=== PATIENT | female | born 1975 | race American Indian/Alaskan Native ===

== ENCOUNTER 2018-01-30 14:45 | Emergency (ER) | payer MEDICAID ==
[2018-01-30] MEDS ORDERED: TORADOL IM ONE (15:34)
[2018-01-30] MEDS ORDERED: DELTASONE PO ONE (15:34)
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
[2018-01-30 15:44] VITALS: BP 147/92
--- NOTE | 2018-01-30 16:46 | XRay Report ---
FINAL REPORT PROCEDURE: XR SPINE LUMBOSACRAL 2-3V TECHNIQUE: AP, lateral view and cone down lateral view were obtained. HISTORY: low back pain COMPARISON: No prior studies are available for comparison. FINDINGS: No fracture or subluxation is seen. Mild disc space narrowing seen at the L5-S1 level. Small marginal osteophytic spurs are present at L4-5 L5-S1 disc space. Anterior osteophytic spurs present lower thoracic spine. Posterior elements are intact. There is mild sclerotic change seen in the SI joints bilaterally suggesting mild osteoarthritis. IMPRESSION: Mild degenerative disc disease lower lumbar spine as described. There is also degenerative disc changes seen in the lower thoracic spine. No acute bone abnormalities are seen. Mild degenerative changes SI joints.
== END 2018-01-30 17:12 | disposition home or self-care (01) ==
LOC: ED 14:45
DX: S39.012A Strain of muscle, fascia and tendon of lower back, initial encounter (principal); J45.909 Unspecified asthma, uncomplicated; X58.XXXA Exposure to other specified factors, initial encounter; Y93.89 Activity, other specified; Y92.89 Other specified places as the place of occurrence of the external cause; Y99.8 Other external cause status
CPT/HCPCS: 72100; 96372; 99283; J1885; J7512

== ENCOUNTER 2018-06-07 23:27 | Emergency (ER) | payer MEDICAID ==
[2018-06-08 02:18] LABS: HCG Qualitative,Urine Negative (Negative)
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
[2018-06-08] MEDS ORDERED: IBUPROFEN PO ONE (07:49)
[2018-06-08] MEDS ORDERED: IBUPROFEN ONE (07:53)
[2018-06-08 07:59] VITALS: BP 144/98
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
--- NOTE | 2018-06-08 09:02 | XRay Report ---
RIGHT SHOULDER, 3 VIEWS: HISTORY: right shoulder pain. Normal bone mineralization. No acute osseous injury or joint pathology is detected. The soft tissues are unremarkable. IMPRESSION: Right shoulder within normal limits.
--- NOTE | 2018-06-08 09:03 | XRay Report ---
CERVICAL SPINE, 3 views: History: Neck pain. Findings: The vertebral bodies, disk spaces, posterior elements and prevertebral soft tissues are unremarkable. The dens is intact. No acute fracture or malalignment is identified. Impression: 1. No evidence for acute injury to the cervical spine.
== END 2018-06-08 09:30 | disposition home or self-care (01) ==
LOC: ED 23:27
DX: S46.911A Strain of unspecified muscle, fascia and tendon at shoulder and upper arm level, right arm, initial encounter (principal); S16.1XXA Strain of muscle, fascia and tendon at neck level, initial encounter; M19.90 Unspecified osteoarthritis, unspecified site; J45.909 Unspecified asthma, uncomplicated; V49.9XXA Car occupant (driver) (passenger) injured in unspecified traffic accident, initial encounter; Y93.89 Activity, other specified; Y92.488 Other paved roadways as the place of occurrence of the external cause; Y99.8 Other external cause status
CPT/HCPCS: 71046; 72040; 81025; 99284

== ENCOUNTER 2021-09-13 09:36 | Inpatient (IN) | payer MEDICAID ==
[2021-09-13] MEDS ORDERED: MORPHINE 4 MG/1 ML INJ IV ONE ×3 (12:54→19:18)
[2021-09-13] MEDS ORDERED: SODIUM CHLORIDE 0.9% 1000 ML 1,000 ML IV ONE (12:54)
[2021-09-13] MEDS ORDERED: ONDANSETRON 4 MG/2 ML INJ IV ONE (12:54)
--- NOTE | 2021-09-13 12:58 | Emergency Department Report ---
ED Abdominal Pain HPI - General Chief Complaint: Abdominal Pain Stated Complaint: ABD PAIN/BACK PAIN Time Seen by Provider: 09/13/21 11:29 Source: patient Mode of arrival: Ambulatory Limitations: No Limitations - History of Present Illness Initial Comments: This is a 46-year-old female nontoxic, well nourished in appearance, no acute signs of distress presents to the ED with c/o of nausea and vomiting and abdominal pain several days. Patient describes vomiting as food content and yellow gastric acid. Patient describes abdominal pain as cramping and aching with level of 8/10 diffuse. Patient denies chest pain, short of breath, fever, hemoptysis, blood in stool, chills, headache, stiff neck, numbness or tingling. Patient denies any diarrhea or constipation. Denies any blood in stool. Patient denies any recent travels. Patient denies any drug allergies. MD Complaint: abdominal pain -: days(s) Location: LLQ, RLQ Radiation: none Migration to: no migration Severity: mild Severity scale (0 -10): 8 Quality: aching, sharp Consistency: constant Improves With: nothing Worsens With: nothing Associated Symptoms: nausea, vomiting. denies: diarrhea, fever, chills, constipation, dysuria, hematemesis, hematochezia, melena, hematuria, anorexia, syncope - Related Data Previous Rx's Medication Instructions Recorded Last Taken Type Cyclobenzaprine [Flexeril 10 MG 10 mg PO QHS PRN #10 tablet 06/08/18 Unknown Rx TAB] Ibuprofen [Motrin 600 MG tab] 600 mg PO Q8H PRN #30 tablet 06/08/18 Unknown Rx Allergies Allergy/AdvReac Type Severity Reaction Status Date / Time No Known Allergies Allergy Unverified 01/30/18 14:54 ED Review of Systems ROS: Stated complaint: ABD PAIN/BACK PAIN Other details as noted in HPI Comment: All other systems reviewed and negative Constitutional: denies: chills, fever Eyes: denies: eye pain, eye discharge, vision change ENT: denies: ear pain, throat pain Respiratory: denies: cough, shortness of breath, wheezing Cardiovascular: denies: chest pain, palpitations Endocrine: no symptoms reported Gastrointestinal: abdominal pain, nausea, vomiting. denies: diarrhea, constipation, hematemesis, melena, hematochezia Genitourinary: denies: urgency, dysuria, discharge Musculoskeletal: denies: back pain, joint swelling, arthralgia Skin: denies: rash, lesions Neurological: denies: headache, weakness, paresthesias Psychiatric: denies: anxiety, depression Hematological/Lymphatic: denies: easy bleeding, easy bruising ED Past Medical Hx - Past Medical History Hx Arthritis: Yes (spine) Hx Asthma: Yes Additional medical history: Uterine Fibroids. Bronchitis - Social History Smoking Status: Never Smoker Substance Use Type: None - Medications Home Medications: Home Medications Medication Instructions Recorded Confirmed Last Taken Type Cyclobenzaprine [Flexeril 10 MG 10 mg PO QHS PRN #10 tablet 06/08/18 Unknown Rx TAB] Ibuprofen [Motrin 600 MG tab] 600 mg PO Q8H PRN #30 tablet 06/08/18 Unknown Rx ED Physical Exam - General Limitations: No Limitations General appearance: alert, in no apparent distress - Head Head exam: Present: atraumatic, normocephalic - Eye Eye exam: Present: normal appearance - Neck Neck exam: Present: normal inspection, full ROM. Absent: lymphadenopathy - Respiratory Respiratory exam: Present: normal lung sounds bilaterally. Absent: respiratory distress, wheezes, rales, rhonchi, stridor, chest wall tenderness, accessory muscle use, decreased breath sounds, prolonged expiratory - Cardiovascular Cardiovascular Exam: Present: regular rate, normal rhythm, normal heart sounds. Absent: bradycardia, tachycardia, irregular rhythm, systolic murmur, diastolic murmur, rubs, gallop - GI/Abdominal GI/Abdominal exam: Present: soft, tenderness (Lower abdomen bilaterally), normal bowel sounds. Absent: distended, guarding, rebound, rigid, diminished bowel sounds - Extremities Exam Extremities exam: Present: normal inspection, full ROM - Back Exam Back exam: Present: normal inspection, full ROM. Absent: tenderness, CVA tenderness (R), CVA tenderness (L), muscle spasm, paraspinal tenderness, vertebral tenderness, rash noted - Neurological Exam Neurological exam: Present: alert, oriented X3, normal gait - Psychiatric Psychiatric exam: Present: normal affect, normal mood - Skin Skin exam: Present: warm, dry, intact, normal color. Absent: rash ED Course Vital Signs 09/13/21 10:16 Temperature 98.6 F Pulse Rate 82 Respiratory 18 Rate Blood Pressure 147/93 O2 Sat by Pulse 99 Oximetry - Reevaluation(s) Reevaluation #1: 09/13/21 12:58 Patient is speaking in full sentences with no signs of distress noted. - Consultations Consultation #1: 09/13/21 16:44 Patient has been consulted with Dr. Zavala about patient history, physical exam, and labs/imaging results and agrees to the ED plan of care with surgery consult. Consultation #2: 09/13/21 17:56 Patient has been consulted with Dr. Mosquera about patient history, physical exam, and labs/imaging results and patient can be admitted. Consultation #3: 09/13/21 19:25 Patient has been consulted with Dr. Lyons about patient history, physical exam, and labs/imaging results and accepts patient to services. ED Medical Decision Making - Lab Data Result diagrams: 09/13/21 11:52 09/13/21 11:52 Lab Results 09/13/21 09/13/21 09/13/21 Range/Units 10:51 11:52 11:52 WBC 9.0 (4.5-11.0) K/mm3 RBC 4.58 (3.65-5.03) M/mm3 Hgb 12.8 (10.1-14.3) gm/dl Hct 38.5 (30.3-42.9) % MCV 84 (79-97) fl MCH 28 (28-32) pg MCHC 33 (30-34) % RDW 14.0 (13.2-15.2) % Plt Count 267 (140-440) K/mm3 Lymph % (Auto) 23.6 (13.4-35.0) % [place] % (Auto) 4.1 (0.0-7.3) % Eos % (Auto) 0.9 (0.0-4.3) % Baso % (Auto) 0.2 (0.0-1.8) % Lymph # (Auto) 2.1 (1.2-5.4) K/mm3 [place] # (Auto) 0.4 (0.0-0.8) K/mm3 Eos # (Auto) 0.1 (0.0-0.4) K/mm3 Baso # (Auto) 0.0 (0.0-0.1) K/mm3 Seg Neutrophils % 71.2 H (40.0-70.0) % Seg Neutrophils # 6.4 (1.8-7.7) K/mm3 Sodium 139 (137-145) mmol/L Potassium 4.0 (3.6-5.0) mmol/L Chloride 104.5 (98-107) mmol/L Carbon Dioxide 25 (22-30) mmol/L Anion Gap 14 mmol/L BUN 7 (7-17) mg/dL Creatinine 0.7 (0.6-1.2) mg/dL Estimated GFR > 60 ml/min BUN/Creatinine Ratio 10 % Glucose 98 (65-100) mg/dL Calcium 9.2 (8.4-10.2) mg/dL Total Bilirubin 0.50 (0.1-1.2) mg/dL AST 11 (5-40) units/L ALT 8 (7-56) units/L Alkaline Phosphatase 77 (35-129) units/L Total Protein 7.3 (6.3-8.2) g/dL Albumin 3.8 L (3.9-5) g/dL Albumin/Globulin Ratio 1.1 % Lipase 23 (13-60) units/L HCG, Qual (Negative) Urine Color Yellow (Yellow) Urine Turbidity Clear (Clear) Urine pH 8.0 H (5.0-7.0) Ur Specific [place] 1.014 (1.003-1.030) Urine Protein <15 mg/dl (Negative) mg/dL Urine Glucose (UA) Neg (Negative) mg/dL Urine Ketones Neg (Negative) mg/dL Urine Blood Sm (Negative) Urine Nitrite Neg (Negative) Urine Bilirubin Neg (Negative) Urine Urobilinogen 2.0 (<2.0) mg/dL Ur Leukocyte Esterase Neg (Negative) Urine WBC (Auto) 1.0 (0.0-6.0) /HPF Urine RBC (Auto) 8.0 (0.0-6.0) /HPF U Epithel Cells (Auto) 3.0 (0-13.0) /HPF Urine Mucus Few /HPF 09/13/21 Range/Units 11:52 WBC (4.5-11.0) K/mm3 RBC (3.65-5.03) M/mm3 Hgb (10.1-14.3) gm/dl Hct (30.3-42.9) % MCV (79-97) fl MCH (28-32) pg MCHC (30-34) % RDW (13.2-15.2) % Plt Count (140-440) K/mm3 Lymph % (Auto) (13.4-35.0) % [place] % (Auto) (0.0-7.3) % Eos % (Auto) (0.0-4.3) % Baso % (Auto) (0.0-1.8) % Lymph # (Auto) (1.2-5.4) K/mm3 [place] # (Auto) (0.0-0.8) K/mm3 Eos # (Auto) (0.0-0.4) K/mm3 Baso # (Auto) (0.0-0.1) K/mm3 Seg Neutrophils % (40.0-70.0) % Seg Neutrophils # (1.8-7.7) K/mm3 Sodium (137-145) mmol/L Potassium (3.6-5.0) mmol/L Chloride (98-107) mmol/L Carbon Dioxide (22-30) mmol/L Anion Gap mmol/L BUN (7-17) mg/dL Creatinine (0.6-1.2) mg/dL Estimated GFR ml/min BUN/Creatinine Ratio % Glucose (65-100) mg/dL Calcium (8.4-10.2) mg/dL Total Bilirubin (0.1-1.2) mg/dL AST (5-40) units/L ALT (7-56) units/L Alkaline Phosphatase (35-129) units/L Total Protein (6.3-8.2) g/dL Albumin (3.9-5) g/dL Albumin/Globulin Ratio % Lipase (13-60) units/L HCG, Qual Negative (Negative) Urine Color (Yellow) Urine Turbidity (Clear) Urine pH (5.0-7.0) Ur Specific [place] (1.003-1.030) Urine Protein (Negative) mg/dL Urine Glucose (UA) (Negative) mg/dL Urine Ketones (Negative) mg/dL Urine Blood (Negative) Urine Nitrite (Negative) Urine Bilirubin (Negative) Urine Urobilinogen (<2.0) mg/dL Ur Leukocyte Esterase (Negative) Urine WBC (Auto) (0.0-6.0) /HPF Urine RBC (Auto) (0.0-6.0) /HPF U Epithel Cells (Auto) (0-13.0) /HPF Urine Mucus /HPF - Radiology Data [facility] [address] [place] [address] Cat Scan Report Signed Patient: ANISA SAMSON MR #: [id number] : 1975 Acct:[id number] Age/Sex: 46 / F ADM Date: 09/13/21 Loc: ED Attending Dr: Ordering Physician: MIRANDA FERNANDEZ NP Date of Service: 09/13/21 Procedure(s): CT abdomen pelvis w con Accession Number(s): [id number] cc: MIRANDA FERNANDEZ NP CT abdomen pelvis w con INDICATION / CLINICAL INFORMATION: abd pain with n.v OMNIPAQUE 300 100ML. TECHNIQUE: Axial CT imaging of abdomen and pelvis was obtained with IV contrast. Coronal and sagittal reformatted imaging obtained and reviewed. All CT scans at this location are performed using CT dose reduction for ALARA by means of automated exposure control. COMPARISON: None available. FINDINGS: CT abdomen with IV contrast demonstrates normal appearance of the liver, spleen, pancreas, kidneys, and adrenal glands. Gallbladder is present without obvious abnormality. There is mild intrahepatic biliary dilatation. The common bile duct is also mildly dilated measuring approximately 8 mm. Abdominal aorta is unremarkable. CT pelvis with contrast does not demonstrate any mass, free fluid, or focal inflammatory change. A normal appendix is present. Uterus is mildly enlarged. No adnexal mass. GI tract is within normal limits. Visualized lung bases are clear. No acute osseous abnormality. IMPRESSION: 1. Mild intrahepatic and extrahepatic biliary dilatation are present. Although no obvious gallbladder pathology is noted, gallbladder ultrasound is recommended to exclude the possibility of cholelithiasis and/or pancreatic mass. 2. No other significant finding. Signer Name: Little Zarate MD Signed: 09/13/2021 2:32 PM Workstation Name: [id number] Transcribed By: Dictated By: Little Zarate MD Electronically Authenticated By: Little Zarate MD Signed Date/Time: 09/13/21 1432 DD/ 1429 TD/TT: [facility] [address] [place] [address] Ultrasound Report Signed Patient: ANISA SAMSON MR #: [id number] : 1975 Acct:[id number] Age/Sex: 46 / F ADM Date: 09/13/21 Loc: ED Attending Dr: Ordering Physician: MIRANDA FERNANDEZ NP Date of Service: 09/13/21 Procedure(s): US abdomen limited Accession Number(s): [id number] cc: MIRANDA FERNANDEZ NP ULTRASOUND ABDOMEN, LIMITED INDICATION / CLINICAL INFORMATION: abnormal CT results of gallbladder. COMPARISON: CT dated 09/13/21 FINDINGS: PANCREAS: Visualized portion shows no significant abnormality. LIVER: No significant abnormality. Normal hepatopedal blood flow in the main portal vein. GALLBLADDER: Shadowing gallstone in the fundus measuring about 3.6 x 2.3 cm. Mild gallbladder wall thickening and edema. BILE DUCTS: No significant abnormality. Common bile duct measures 2 mm. FREE FLUID: None. ADDITIONAL FINDINGS: None. IMPRESSION: 1. Cholelithiasis with possible acute cholecystitis. Signer Name: Nandini Brennan MD Signed: 09/13/2021 4:03 PM Workstation Name: [id number] Transcribed By: DT Dictated By: Geoffrey Brennan MD Electronically Authenticated By: Geoffrey Brennan MD Signed Date/Time: 09/13/21 1603 DD/ 1600 TD/TT: - Medical Decision Making This is a 46-year-old female that presents with cholelithiasis with acute cholecystitis. Patient is stable and was examined by me. Labs obtained. UA obtained. CT and ultrasound of abdomen obtained and dictated by the radiologist. Patient is notified of the report with no questions noted by the patient. Vital signs are stable prior to discharge. Patient received medical treatment in the ED with IV antibiotics. Patient consulted with surgery and admitted with spitalist. At time of admission, the patient does not seem toxic or ill in appearance. No acute signs of distress noted. Patient agrees to admission treatment plan of care. No further questions noted by the patient. Critical care attestation.: If time is entered above; I have spent that time in minutes in the direct care of this critically ill patient, excluding procedure time. ED Disposition Clinical Impression: Acute cholecystitis Cholelithiasis Qualifiers: Cholelithiasis location: gallbladder Cholecystitis presence: with cholecystitis Cholecystitis acuity: acute Biliary obstruction: without biliary obstruction Qualified Code(s): K80.00 - Calculus of gallbladder with acute cholecystitis without obstruction Disposition: 09 ADMITTED INPATIENT Is pt being admited?: Yes Condition: Stable Instructions: Abdominal Pain (ED) Time of Disposition: 19:36
[2021-09-13 13:10] LABS: Bilirubin,Urine NEG (Negative); Blood,Urine SM (Negative); Color,Urine Yellow (Yellow); Mucus,Urine FEW /HPF; Protein,Urine <15 mg/dL mg/dL (Negative)
[2021-09-13 13:15] LABS: Alanine Aminotransferase 8 units/L (7-56); Albumin 3.8 g/dL (3.9-5); Blood Urea Nitrogen 7 mg/dL (7-17); Calcium 9.2 mg/dL (8.4-10.2); Hemolysis Index 4
[2021-09-13 13:17] LABS: BUN/Creatinine Ratio 10
[2021-09-13 13:35] LABS: Basophils % (Auto) 0.2 % (0.0-1.8); Eosinophils # (Auto) 0.1 K/mm3 (0.0-0.4); Eosinophils % (Auto) 0.9 % (0.0-4.3); Hematocrit 38.5 % (30.3-42.9); Hemoglobin 12.8 gm/dl (10.1-14.3); Lymphocytes # (Auto) 2.1 K/mm3 (1.2-5.4); Lymphocytes % (Auto) 23.6 % (13.4-35.0); Mean Corpuscular HGB Conc 33 % (30-34); Mean Corpuscular Volume 84 fl (79-97); Monocytes # (Auto) 0.4 K/mm3 (0.0-0.8); Monocytes % (Auto) 4.1 % (0.0-7.3); Platelet Count 267 K/mm3 (140-440); Red Blood Count 4.58 M/mm3 (3.65-5.03)
--- NOTE | 2021-09-13 14:36 | Cat Scan Report ---
CT abdomen pelvis w con INDICATION / CLINICAL INFORMATION: abd pain with n.v OMNIPAQUE 300 100ML. TECHNIQUE: Axial CT imaging of abdomen and pelvis was obtained with IV contrast. Coronal and sagittal reformatte d imaging obtained and reviewed. All CT scans at this location are performed using CT dose reduction for ALARA by means of automated exposure control. COMPARISON: None available. FINDINGS: CT abdomen with IV contrast demonstrates normal appearance of the liver, spleen, pancreas, kidneys, a nd adrenal glands. Gallbladder is present without obvious abnormality. There is mild intrahepatic geoff iary dilatation. The common bile duct is also mildly dilated measuring approximately 8 mm. Abdominal aorta is unremarkable. CT pelvis with contrast does not demonstrate any mass, free fluid, or focal inflammatory change. A no rmal appendix is present. Uterus is mildly enlarged. No adnexal mass. GI tract is within normal limit s. Visualized lung bases are clear. No acute osseous abnormality. IMPRESSION: 1. Mild intrahepatic and extrahepatic biliary dilatation are present. Although no obvious gallbladder pathology is noted, gallbladder ultrasound is recommended to exclude the possibility of cholelithias is and/or pancreatic mass. 2. No other significant finding. Signer Name: Little Zarate MD Signed: 09/13/2021 2:32 PM Workstation Name: [id number]
--- NOTE | 2021-09-13 16:08 | Ultrasound Report ---
ULTRASOUND ABDOMEN, LIMITED INDICATION / CLINICAL INFORMATION: abnormal CT results of gallbladder. COMPARISON: CT dated 09/13/21 FINDINGS: PANCREAS: Visualized portion shows no significant abnormality. LIVER: No significant abnormality. Normal hepatopedal blood flow in the main portal vein. GALLBLADDER: Shadowing gallstone in the fundus measuring about 3.6 x 2.3 cm. Mild gallbladder wall th ickening and edema. BILE DUCTS: No significant abnormality. Common bile duct measures 2 mm. FREE FLUID: None. ADDITIONAL FINDINGS: None. IMPRESSION: 1. Cholelithiasis with possible acute cholecystitis. Signer Name: Nandini Brennan MD Signed: 09/13/2021 4:03 PM Workstation Name: [id number]
[2021-09-13] MEDS ORDERED: ERTAPENEM 1 GM in SODIUM CHLORIDE 0.9% 50 ML IV ONE (17:30)
--- NOTE | 2021-09-13 19:26 | History and Physical Report ---
History of Present Illness Chief complaint: My stomach hurts History of present illness: 46 YO Female with Mild Intermittent Asthma, Uterine Fibroids, Seasonal Allergies, Obesity Hypoventilation Syndrome presents to ED for evaluation. Patient reports "my stomach hurts". Patient states that she has experienced abdominal pain over the past 2 days with persistent and worsening symptoms over the same timeframe. Patient states that her pain is 8/10, constant, worsened with meals, relieved with rest. Patient states that pain is crampy in nature, constant, mainly in the right upper quadrant. Patient states that she is unable to tolerate oral intake. Patient acknowledges anorexia. Patient transported to [facility] via private vehicle for further care and evaluation of the aforementioned symptoms. The patient was seen and evaluated in the emergency department. All lab and imaging studies reviewed. Patient was CT scan of the abdomen pelvis and was found to have acute cholecystitis, cholelithiasis, as well as abdominal pain. Patient admitted to medical floor due to increased risk of worsening symptoms. Surgery team consulted. Patient treated with IV fluid resuscitation therapy and pain control. Patient denies fever, chills, chest pain, palpitation, productive cough, skin rash, recent contact, ingestion of food/water from new or different sources, recent contact, known exposure to COVID-19. No prior admission for review. All medication listed at time of admission has been reconciled. Advanced care planning conducted in ED. Past History Past Medical History: other (see Hpi) Past Surgical History: No surgical history Social history: single. denies: smoking, alcohol abuse Family history: hypertension Medications and Allergies Allergies Allergy/AdvReac Type Severity Reaction Status Date / Time No Known Allergies Allergy Unverified 01/30/18 14:54 Home Medications Medication Instructions Recorded Confirmed Last Taken Type Cyclobenzaprine [Flexeril 10 MG 10 mg PO QHS PRN #10 tablet 06/08/18 Unknown Rx TAB] Ibuprofen [Motrin 600 MG tab] 600 mg PO Q8H PRN #30 tablet 06/08/18 Unknown Rx Review of Systems Constitutional: no weight loss, no weight gain, no fever, no chills Ears, nose, mouth and throat: no ear pain, no ear discharge, no tinnitis, no decreased hearing, no nose pain, no nasal congestion Breasts: no change in shape, no swelling, no mass Cardiovascular: no chest pain, no orthopnea, no palpitations, no rapid/irregular heart beat, no edema Respiratory: no cough Gastrointestinal: abdominal pain, no change in bowel habits Genitourinary Female: no pelvic pain, no flank pain, no dysuria, no urinary frequency, no urgency Rectal: no pain, no incontinence, no bleeding Musculoskeletal: no neck stiffness, no shooting arm pain, no low back pain, no shooting leg pain Integumentary: no rash, no pruritis, no redness, no wounds Neurological: no head injury, no paralysis, no numbness, no tingling, no syncope Psychiatric: no anxiety, no change in sleep habits, no change in appetite, no suicidal ideation, no disorientation Endocrine: no cold intolerance, no polyphagia, no excessive thirst, no polydipsia, no excessive sweating Hematologic/Lymphatic: no easy bruising, no easy bleeding, no lymphadenopathy Allergic/Immunologic: no urticaria, no allergic rhinitis, no persistent infections Exam - Constitutional Vitals: Temp Pulse Resp BP Pulse Ox 98.6 F 82 18 147/93 99 09/13/21 10:16 09/13/21 10:16 09/13/21 10:16 09/13/21 10:16 09/13/21 10:16 General appearance: Present: mild distress - EENT Eyes: Present: PERRL ENT: hearing intact, clear oral mucosa - Neck Neck: Present: supple, normal ROM - Respiratory Respiratory effort: normal Respiratory: bilateral: CTA - Cardiovascular Heart Sounds: Present: S1 & S2. Absent: rub, click - Extremities Extremities: pulses symmetrical, No edema Peripheral Pulses: within normal limits - Abdominal General gastrointestinal: Present: soft, tender, non-distended, normal bowel sounds Localized gastrointestinal: tender: RUQ Female genitourinary: Present: normal - Integumentary Integumentary: Present: clear, warm, dry - Musculoskeletal Musculoskeletal: gait normal, strength equal bilaterally - Psychiatric Psychiatric: appropriate mood/affect, intact judgment & insight - Neurologic Neurologic: CNII-XII intact, moves all extremities Results - Labs CBC & Chem 7: 09/13/21 11:52 09/13/21 11:52 Labs: Abnormal lab results 09/13/21 09/13/21 09/13/21 Range/Units 10:51 11:52 11:52 Seg Neutrophils % 71.2 H (40.0-70.0) % Albumin 3.8 L (3.9-5) g/dL Urine pH 8.0 H (5.0-7.0) Assessment and Plan - Patient Problems (1) Acute cholecystitis Current Visit: Yes Status: Acute Plan to address problem: CT scan abdomen and pelvis, abdominal ultrasound, IV fluid resuscitation therapy, bowel rest, pain control, n.p.o., surgery team consulted. Patient pending surgical intervention as per surgical team. (2) Abdominal pain Current Visit: Yes Status: Acute Plan to address problem: Pain control, bowel rest, IV fluid resuscitation therapy, serial abdominal exam. (3) Seasonal allergies Current Visit: Yes Status: Acute Plan to address problem: Supportive care, antihistamine therapy as clinically indicated. (4) DVT prophylaxis Current Visit: Yes Status: Acute Plan to address problem: SCDs bilateral lower extremities while in bed (5) Advance care planning Current Visit: Yes Status: Acute Plan to address problem: Disease education conducted, care plan discussed, diagnoses discussed, prognosis discussed, patient is full code. Patient knowledges understanding agreement with care plan, +30 minutes.
[2021-09-13] MEDS ORDERED: oxyCODONE /ACETAMINOPHEN 5-325MG TAB PO PRN (19:51)
[2021-09-13] MEDS ORDERED: ALBUTEROL 2.5 MG/3 ML NEBU IH PRN (19:51)
[2021-09-13] MEDS ORDERED: ONDANSETRON 4 MG/2 ML INJ IV PRN (19:51)
[2021-09-13] MEDS ORDERED: ACETAMINOPHEN 325 MG TAB PO PRN (19:51)
[2021-09-13] MEDS ORDERED: HYDROmorphone 1 MG/1 ML INJ IV PRN (19:51)
[2021-09-14] MEDS: SODIUM CHLORIDE 0.9% 1000 ML 1,000 ML IV SCH ×2 (05:27→12:49)
[2021-09-14 07:47] LABS: Basophils % (Auto) 0.3 % (0.0-1.8); Eosinophils # (Auto) 0.1 K/mm3 (0.0-0.4); Eosinophils % (Auto) 1.3 % (0.0-4.3); Hematocrit 39.2 % (30.3-42.9); Hemoglobin 12.8 gm/dl (10.1-14.3); Lymphocytes # (Auto) 1.6 K/mm3 (1.2-5.4); Lymphocytes % (Auto) 23.8 % (13.4-35.0); Mean Corpuscular HGB Conc 33 % (30-34); Mean Corpuscular Volume 85 fl (79-97); Monocytes # (Auto) 0.3 K/mm3 (0.0-0.8); Monocytes % (Auto) 4.1 % (0.0-7.3); Platelet Count 252 K/mm3 (140-440); Red Blood Count 4.62 M/mm3 (3.65-5.03); Red Cell Distribution Width 13.8 % (13.2-15.2)
--- NOTE | 2021-09-14 08:08 | Consultation ---
History of Present Illness Consult date: 09/14/21 Reason for consult: gallstones - History of present illness History of present illness: General surgery consulted for 46-year-old female presented to the emergency room yesterday with a 1 week history of worsening right upper quadrant pain with nausea and vomiting. Patient had a CT scan that was fairly unremarkable followed by an abdominal ultrasound which showed gallstones and possible cholecystitis. Patient says that at its worst the pain is 10 out of 10 and makes it difficult to walk currently her pain is much better because she has been getting pain medication. She denies having this pain prior to this year. Past History Past Medical History: other (bronchitis) Past Surgical History: No surgical history Social history: single. denies: smoking, alcohol abuse Family history: hypertension Medications and Allergies Allergies Allergy/AdvReac Type Severity Reaction Status Date / Time No Known Allergies Allergy Verified 09/13/21 20:30 Home Medications Medication Instructions Recorded Confirmed Last Taken Type Cyclobenzaprine [Flexeril 10 MG 10 mg PO QHS PRN #10 tablet 06/08/18 09/13/21 Unknown Rx TAB] Ibuprofen [Motrin 600 MG tab] 600 mg PO Q8H PRN #30 tablet 06/08/18 09/13/21 Unknown Rx Active Meds: Active Medications Acetaminophen (Acetaminophen 325 Mg Tab) 650 mg PO Q4H PRN PRN Reason: Pain MILD(1-3)/Fever >100.5/REID Albuterol (Albuterol 2.5 Mg/3 Ml Nebu) 2.5 mg IH Q4HRT PRN PRN Reason: Shortness Of Breath Hydromorphone HCl (Hydromorphone 1 Mg/1 Ml Inj) 0.5 mg IV Q6H PRN PRN Reason: Pain , Severe (7-10) Sodium Chloride (Nacl 0.9% 1000 Ml) 1,000 mls @ 125 mls/hr IV DIRECT ERNST Last Admin: 09/14/21 05:27 Dose: 125 mls/hr Ondansetron HCl (Ondansetron 4 Mg/2 Ml Inj) 4 mg IV Q8H PRN PRN Reason: Nausea And Vomiting Oxycodone/Acetaminophen (Oxycodone /Acetaminophen 5-325mg Tab) 1 tab PO Q6H PRN PRN Reason: Pain, Moderate (4-6) Sodium Chloride (Sodium Chloride 0.9% 10 Ml Flush Syringe) 10 ml IV BID ERNST Last Admin: 09/13/21 21:30 Dose: 10 ml Sodium Chloride (Sodium Chloride 0.9% 10 Ml Flush Syringe) 10 ml IV PRN PRN PRN Reason: LINE FLUSH Last Admin: 09/13/21 20:16 Dose: 10 ml Review of Systems All systems: negative - Gastrointestinal abdominal pain, nausea, vomiting Exam Vital Signs Temp Pulse Resp BP Pulse Ox 98.6 F 82 18 147/93 99 09/13/21 10:16 09/13/21 10:16 09/13/21 10:16 09/13/21 10:16 09/13/21 10:16 - General physical appearance Positive: well developed, no distress, moderate pain - Eyes Positive: PERRL. Negative: icteric - ENT Positive: no hearing loss - Respiratory Positive: normal expansion, normal respiratory effort - Cardiovascular Heart Sounds: Present: S1 & S2 - Extremities Extremities: no ischemia - Abdomen Abdomen: Present: soft, other (protuberent). Absent: rebound, guarding, rigid, surgical scars - Neurologic Neurologic: alert and oriented to time, place and person, motor strength and sensation are grossly intact - Psychiatric Psychiatric: appropriate mood/affect Results - Labs 09/14/21 06:25 09/14/21 06:25 Abnormal lab results 09/13/21 09/13/21 09/13/21 Range/Units 10:51 11:52 11:52 Seg Neutrophils % 71.2 H (40.0-70.0) % Albumin 3.8 L (3.9-5) g/dL Urine pH 8.0 H (5.0-7.0) 09/14/21 Range/Units 06:25 Seg Neutrophils % 70.5 H (40.0-70.0) % Albumin (3.9-5) g/dL Urine pH (5.0-7.0) Diabetes panel 09/13/21 Range/Units 11:52 Sodium 139 (137-145) mmol/L Potassium 4.0 (3.6-5.0) mmol/L Chloride 104.5 (98-107) mmol/L Carbon Dioxide 25 (22-30) mmol/L BUN 7 (7-17) mg/dL Creatinine 0.7 (0.6-1.2) mg/dL Glucose 98 (65-100) mg/dL Calcium 9.2 (8.4-10.2) mg/dL AST 11 (5-40) units/L ALT 8 (7-56) units/L Alkaline Phosphatase 77 (35-129) units/L Total Protein 7.3 (6.3-8.2) g/dL Albumin 3.8 L (3.9-5) g/dL Calcium panel 09/13/21 Range/Units 11:52 Calcium 9.2 (8.4-10.2) mg/dL Albumin 3.8 L (3.9-5) g/dL Pituitary panel 09/13/21 Range/Units 11:52 Sodium 139 (137-145) mmol/L Potassium 4.0 (3.6-5.0) mmol/L Chloride 104.5 (98-107) mmol/L Carbon Dioxide 25 (22-30) mmol/L BUN 7 (7-17) mg/dL Creatinine 0.7 (0.6-1.2) mg/dL Glucose 98 (65-100) mg/dL Calcium 9.2 (8.4-10.2) mg/dL Adrenal panel 09/13/21 Range/Units 11:52 Sodium 139 (137-145) mmol/L Potassium 4.0 (3.6-5.0) mmol/L Chloride 104.5 (98-107) mmol/L Carbon Dioxide 25 (22-30) mmol/L BUN 7 (7-17) mg/dL Creatinine 0.7 (0.6-1.2) mg/dL Glucose 98 (65-100) mg/dL Calcium 9.2 (8.4-10.2) mg/dL Total Bilirubin 0.50 (0.1-1.2) mg/dL AST 11 (5-40) units/L ALT 8 (7-56) units/L Alkaline Phosphatase 77 (35-129) units/L Total Protein 7.3 (6.3-8.2) g/dL Albumin 3.8 L (3.9-5) g/dL - Imaging CT scan - abdomen: report reviewed, image reviewed CT scan - pelvis: report reviewed, image reviewed US - abdomen: report reviewed, image reviewed Assessment and Plan 46-year-old female with cholelithiasis possible cholecystitis. Afebrile and stable. Discussed patient's pathology and treatment options both surgical and nonsurgical at length. Patient aunt was on the phone at the time of this conversation as well. She expressed understanding. Patient is consented for laparoscopic cholecystectomy. Hopefully surgery can be done today.
[2021-09-14 08:11] LABS: Blood Urea Nitrogen 8 mg/dL (7-17); Hemolysis Index 4
[2021-09-14 08:20] LABS: BUN/Creatinine Ratio 11
--- NOTE | 2021-09-14 13:49 | Anesthesia Day of Surgery ---
Anesthesia Day of Surgery - Day of Surgery Patient Examined: Yes Patient H&P Reviewed: Yes Patient is NPO: Yes
--- NOTE | 2021-09-14 13:49 | Anesthesia Consultation ---
Anesthesia Consult and Med Hx Date of service: 09/14/21 - Airway Anesthetic Teeth Evaluation: Poor (multiple broken, missing teeth) ROM Head & Neck: Adequate Mental/Hyoid Distance: Adequate Mallampati Class: Class III Intubation Access Assessment: Possibly Difficult - Pre-Operative Health Status ASA Pre-Surgery Classification: ASA2 Proposed Anesthetic Plan: General - Pulmonary Hx Smoking: Yes (marijuana) Hx Asthma: Yes (chronic bronchitis, takes inhaler ) - Central Nervous System Hx Back Pain: Yes - Endocrine Hx Liver Disease: Yes (acute cholecystitis) - Other Systems Hx Substance Use: Yes (marijuana, last time one week ago) Hx Obesity: Yes
[2021-09-14] MEDS ORDERED: LIDOCAINE (1%) 10 MG/1 ML VIAL 20 ML MDV ONE (14:44)
[2021-09-14] MEDS ORDERED: BUPIVACAINE/PF (0.5%) 5 MG/1 ML 30 ML VIAL INFILTRATI ONE ×2 (14:45→15:47)
[2021-09-14] MEDS ORDERED: ROCURONIUM 50 MG/5 ML INJ IV ONE (14:55)
[2021-09-14] MEDS ORDERED: fentaNYL 100 MCG/2 ML INJ ONE (14:55)
[2021-09-14] MEDS ORDERED: MIDAZOLAM 2 MG/2 ML INJ ONE (14:55)
[2021-09-14] MEDS ORDERED: propofoL 200 MG/20 ML VIAL IV ONE (14:56)
[2021-09-14] MEDS ORDERED: dexAMETHasone 20 MG/5 ML VIAL ONE (15:23)
[2021-09-14] MEDS ORDERED: ONDANSETRON 4 MG/2 ML INJ ONE (15:23)
[2021-09-14] MEDS ORDERED: KETOROLAC 30 MG/1 ML INJ ONE (15:23)
[2021-09-14] MEDS ORDERED: metroNIDAZOLE/NS 500 MG/100 ML 500 MG/100 ML BAG IV ONE (15:35)
[2021-09-14] MEDS ORDERED: LIDOCAINE (1%) 10 MG/1 ML VIAL 20 ML MDV INFILTRATI ONE (15:48)
[2021-09-14] MEDS ORDERED: WATER FOR IRRIG STERILE 1,500 ML BOTTLE IR ONE (15:48)
[2021-09-14] MEDS ORDERED: GLYCOPYRROLATE 0.4 MG/2 ML INJ ONE (16:11)
[2021-09-14] MEDS ORDERED: NEOSTIGMINE 10MG/10 ML INJ MDV ONE (16:11)
--- NOTE | 2021-09-14 16:29 | Progress Note ---
Assessment and Plan (1) Acute cholecystitis Current Visit: Yes Status: Acute Plan to address problem: CT scan abdomen and pelvis, abdominal ultrasound, IV fluid resuscitation therapy, bowel rest, pain control, n.p.o., surgery team consulted. Patient pending surgical intervention as per surgical team. (2) Abdominal pain Current Visit: Yes Status: Acute Plan to address problem: Pain control, bowel rest, IV fluid resuscitation therapy, serial abdominal exam. (3) Seasonal allergies Current Visit: Yes Status: Acute Plan to address problem: Supportive care, antihistamine therapy as clinically indicated. (4) DVT prophylaxis Current Visit: Yes Status: Acute Plan to address problem: SCDs bilateral lower extremities while in bed (5) Advance care planning Current Visit: Yes Status: Acute Plan to address problem: Disease education conducted, care plan discussed, diagnoses discussed, prognosis discussed, patient is full code. Patient knowledges understanding agreement with care plan, +30 minutes. -- GS following, plan for cholecystectomy today. If clinically remains stable c ould be dc after the surgery. Subjective Date of service: 09/14/21 Interval history: Patient seen and examined vitals stable plan for cholecystectomy today Objective - Constitutional Vitals: Vital Signs - 12hr 09/14/21 09/14/21 10:51 10:55 Temperature 98.5 F 98.5 F Pulse Rate 77 Respiratory 20 20 Rate Blood Pressure 143/90 Blood Pressure 143/90 [Left] O2 Sat by Pulse 98 Oximetry General appearance: Present: no acute distress, well-nourished, obese - EENT Eyes: PERRL, EOM intact ENT: hearing intact, clear oral mucosa Ears: bilateral: normal - Neck Neck: supple, normal ROM - Respiratory Respiratory effort: normal Respiratory: bilateral: CTA - Cardiovascular Rhythm: regular Heart Sounds: Present: S1 & S2. Absent: gallop, rub Extremities: pulses intact, No edema, normal color, Full ROM - Gastrointestinal General gastrointestinal: Present: soft, non-distended, normal bowel sounds - Integumentary Integumentary: clear, warm, dry - Musculoskeletal Musculoskeletal: 1, strength equal bilaterally - Neurologic Neurologic: moves all extremities - Psychiatric Psychiatric: memory intact, appropriate mood/affect, intact judgment & insight - Labs CBC & Chem 7: 09/14/21 06:25 09/14/21 06:25 Labs: Abnormal lab results 09/14/21 09/14/21 Range/Units 06:25 06:25 Seg Neutrophils % 70.5 H (40.0-70.0) % Glucose 103 H (65-100) mg/dL
[2021-09-14] MEDS ORDERED: HYDROmorphone 1 MG/1 ML INJ IV PRN (16:50)
--- NOTE | 2021-09-14 17:52 | Post Anesthesia Evaluation ---
- Post Anesthesia Evaluation Patient Participated: Yes Airway Patent: Yes Stable Respiratory Function: Yes Nausea/Vomiting: No Temp > 96.8F: Yes Pain Manageable: Yes Adequeate Hydration: Yes Anesthesia Complications: No Block Receding Appropriately: Not Applicable Patient on Ventilator: No
--- NOTE | 2021-09-14 18:03 | Operative Report ---
Operative Report Operative Report: Procedure Performed: Lap cholecystectomy Date of Service: 09/14/2021 Primary Surgeon: Jewel Mosquera MD Assisted by: Erika Boyer DO Anesthesia: General Pre-Operative Diagnosis: cholelithiasis, cholecystitis Post-Operative Diagnosis: Same Indications for Procedure: 46 year old female presented to ED with a 1 week history of abdominal pain, nausea and vomiting. Ultrasound of the abdomen showed cholelithiasis cholecystitis. Patient was consented for laparoscopic cholecystectomy Description of Procedure(s): The patient was brought to the operating room and underwent general anesthesia after lower extremity SCD were placed. The abdomen was prepped and draped in the standard fashion. IV antibiotics were given and a time out was performed. Using a veress needle via a stab incision in the left subcostal region, the abdomen was insuflated to a pressure of 15mmHg. Using opt ivew technique, a 5mm trocar was placed just superior and to the left of the umbilicus. There was no gross injury noted to any intra-abdominal structures. After which working trocars were placed under direct visualization. A 12 mm trocar was placed in the epigastrium, and two more 5 mm trocars were inserted in the right lateral sites. The gallbladder was located and grasped at the fundus and retracted up toward the patient's right shoulder. The infundibulum was grasped and retracted laterally. A window was made between the cystic artery and the cystic duct, clearly delineating the two structures. These were clipped with a 5 mm clip fruit or nut farmer and divided. The peritoneum was incised with hook cautery, and the gallbladder was taken from the liver bed, ensuring hemostatis. The endocatch bag was placed in the abdomen and the gallbladder was then removed from the abdomen. The liver bed was examined and the trocars removed under direct visualization. The insufflation was then terminated. The epigastric incision was closed with a 0 Vicryl suture using a suture passer device. The skin incisions were closed using 4-0 Monocryl sutures. All the wounds dressed with dermabond. The patient tolerated the procedure well, was extubated and taken to the recovery room in satisfactory condition. Finding(s): gallbladder with stones Intra-Operative Complications: none Specimens Removed: Gallbladder Estimated Blood Loss: <5ml Complications: none immediate
[2021-09-14] MEDS: KETOROLAC 30 MG/1 ML INJ IV SCH (23:51)
[2021-09-15] MEDS: KETOROLAC 30 MG/1 ML INJ IV SCH ×2 (02:34→09:40)
[2021-09-15 11:03] LABS: Basophils % (Auto) 0.4 % (0.0-1.8); Eosinophils % (Auto) 0.1 % (0.0-4.3); Hematocrit 38.2 % (30.3-42.9); Hemoglobin 12.4 gm/dl (10.1-14.3); Lymphocytes % (Auto) 14.6 % (13.4-35.0); Mean Corpuscular HGB Conc 32 % (30-34); Mean Corpuscular Volume 84 fl (79-97); Monocytes # (Auto) 0.7 K/mm3 (0.0-0.8); Monocytes % (Auto) 4.9 % (0.0-7.3); Platelet Count 269 K/mm3 (140-440); Red Blood Count 4.56 M/mm3 (3.65-5.03); Red Cell Distribution Width 13.4 % (13.2-15.2)
[2021-09-15 11:24] LABS: Alanine Aminotransferase 20 units/L (7-56); Albumin 3.7 g/dL (3.9-5); Blood Urea Nitrogen 10 mg/dL (7-17); Calcium 8.9 mg/dL (8.4-10.2); Hemolysis Index 16
[2021-09-15 11:26] LABS: BUN/Creatinine Ratio 14
[2021-09-15 11:39] VITALS: BP 138/83
--- NOTE | 2021-09-15 13:13 | Progress Note ---
Assessment and Plan POD#1 s/p lap mark. Afebrile and stable. Can be discharged today from surgical perspecitive and follow up in the office in two weeks. [phone] Pt can shower and advance diet and activity as tolerated. Pt was advised to avoid fatty foods. Subjective Date of service: 09/15/21 Narrative: No acute events overnight. Pt says she is having some pain at her epigastric in cision. she denies nausea or vomiting. she is tolerating diet with adequate pain control. Objective Vital Signs - 12hr 09/15/21 09/15/21 09/15/21 05:01 10:00 10:44 Temperature 98.1 F 97.8 F Pulse Rate 93 H 86 Respiratory 16 18 Rate Blood Pressure 149/95 138/83 O2 Sat by Pulse 98 100 96 Oximetry - General physical appearance no distress, moderate pain - Respiratory normal expansion, clear to auscultation - Abdomen soft, not distended, other (appropriately tender to palpation, incisions c/d/i) - Labs 09/15/21 10:39 09/15/21 10:33 Diabetes panel 09/15/21 Range/Units 10:33 Sodium 140 (137-145) mmol/L Potassium 4.1 (3.6-5.0) mmol/L Chloride 105.4 (98-107) mmol/L Carbon Dioxide 25 (22-30) mmol/L BUN 10 (7-17) mg/dL Creatinine 0.7 (0.6-1.2) mg/dL Glucose 96 (65-100) mg/dL Calcium 8.9 (8.4-10.2) mg/dL AST 27 (5-40) units/L ALT 20 (7-56) units/L Alkaline Phosphatase 75 (35-129) units/L Total Protein 6.9 (6.3-8.2) g/dL Albumin 3.7 L (3.9-5) g/dL Calcium panel 09/15/21 Range/Units 10:33 Calcium 8.9 (8.4-10.2) mg/dL Albumin 3.7 L (3.9-5) g/dL Pituitary panel 09/15/21 Range/Units 10:33 Sodium 140 (137-145) mmol/L Potassium 4.1 (3.6-5.0) mmol/L Chloride 105.4 (98-107) mmol/L Carbon Dioxide 25 (22-30) mmol/L BUN 10 (7-17) mg/dL Creatinine 0.7 (0.6-1.2) mg/dL Glucose 96 (65-100) mg/dL Calcium 8.9 (8.4-10.2) mg/dL Adrenal panel 09/15/21 Range/Units 10:33 Sodium 140 (137-145) mmol/L Potassium 4.1 (3.6-5.0) mmol/L Chloride 105.4 (98-107) mmol/L Carbon Dioxide 25 (22-30) mmol/L BUN 10 (7-17) mg/dL Creatinine 0.7 (0.6-1.2) mg/dL Glucose 96 (65-100) mg/dL Calcium 8.9 (8.4-10.2) mg/dL Total Bilirubin 0.50 (0.1-1.2) mg/dL AST 27 (5-40) units/L ALT 20 (7-56) units/L Alkaline Phosphatase 75 (35-129) units/L Total Protein 6.9 (6.3-8.2) g/dL Albumin 3.7 L (3.9-5) g/dL
--- NOTE | 2021-09-15 13:59 | Discharge Summary ---
Providers - Providers Date of Admission: 09/13/21 19:51 Date of discharge: 09/15/21 Attending physician: ALPHONSE COFFEY 09/13/21 18:40 Consult to Physician [CONS] Urgent Comment: Consulting Provider: MITZI MOSQUERA Physician Instructions: Reason For Exam: Cholelithiasis Primary care physician: BASHIR DIAZ Hospitalization Condition: Stable Disposition: 01 HOME / SELF CARE / HOMELESS Exam - Constitutional Vitals: Temp Pulse Resp BP Pulse Ox 97.8 F 86 18 138/83 96 09/15/21 10:44 09/15/21 10:44 09/15/21 10:44 09/15/21 10:44 09/15/21 10:44 Plan Additional Instructions: Follow up the surgeon Dr. Mosquera in the office in two weeks. [phone]. You can shower and advance diet and activity as tolerated. Pt was advised to avoid fatty foods. Follow up with: BASHIR DIAZ MD [Primary Care Provider] - 3-5 Days MITZI MOSQUERA MD [Staff Physician] - 14 Days Prescriptions: Ketorolac [Toradol] 10 mg PO Q6H PRN #20 PRN Reason: Pain
== END 2021-09-15 16:40 | disposition home or self-care (01) | DRG 418 ==
LOC: ED 09:36 → 3A 19:51
PROVIDERS: ADMIT Internal Medicine; ATTEND Internal Medicine
PROC: 0FT44ZZ Resection of Gallbladder, Percutaneous Endoscopic Approach (ICD-10-PCS; principal; 2021-09-14)
DX: K80.00 Calculus of gallbladder with acute cholecystitis without obstruction (principal); E66.2 Morbid (severe) obesity with alveolar hypoventilation; M19.90 Unspecified osteoarthritis, unspecified site; J45.909 Unspecified asthma, uncomplicated; D25.9 Leiomyoma of uterus, unspecified; Z68.26 Body mass index [BMI] 26.0-26.9, adult; Z82.49 Family history of ischemic heart disease and other diseases of the circulatory system
CPT/HCPCS: 36415; 74177; 76705; 80048; 80053; 81001; 83690; 84703; 85025; 88304; G0378; J1815; J3490; J7517; J1100; J1170; J1335; J1885; J2250; J2270; J2405; J2704; J2710; J3010; J7030; Q9967

== ENCOUNTER 2022-01-02 18:34 | Emergency (ER) | payer OTHER, MEDICAID ==
[2022-01-02] MEDS ORDERED: ACETAMINOPHEN 500 MG TAB PO ONE (23:46)
[2022-01-02] MEDS ORDERED: IBUPROFEN 600 MG TAB PO ONE (23:46)
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
[2022-01-03 04:58] VITALS: BP 150/82
== END 2022-01-03 04:00 | disposition home or self-care (01) ==
LOC: ED 18:34
DX: M62.838 Other muscle spasm (principal); M62.830 Muscle spasm of back; V89.2XXA Person injured in unspecified motor-vehicle accident, traffic, initial encounter; Y93.89 Activity, other specified; Y92.89 Other specified places as the place of occurrence of the external cause; Y99.8 Other external cause status
CPT/HCPCS: 70450; 72100; 72125; 99284